=== PATIENT | male | born 1955 ===

== ENCOUNTER → 2018-08-05 | Outpatient (REF) | payer OTHER | LOC: M LAB LCGH 09:27 | PROVIDERS: ATTEND Family Medicine | DX: Z96.659 Presence of unspecified artificial knee joint (principal) ==

== ENCOUNTER → 2018-09-24 | Outpatient (REF) | payer OTHER | LOC: M LAB LCGH 15:10 | PROVIDERS: ATTEND Surgery | DX: D03.59 Melanoma in situ of other part of trunk (principal) ==

== ENCOUNTER → 2020-03-02 | Outpatient (REF) | payer OTHER, MEDICARE | LOC: M LAB REF 14:01 | PROVIDERS: ATTEND Dermatology | DX: L57.0 Actinic keratosis (principal) ==